=== PATIENT | female | born 1940 | race Caucasian/White ===

== ENCOUNTER → 2023-11-27 09:39 | Outpatient (REF) | payer OTHER, SELFPAY | LOC: WDC 09:39 | PROVIDERS: ATTENDING PHYSICIAN Surgery; FAMILY PHYSICIAN Internal Medicine | DX: R92.2 Inconclusive mammogram (principal); Z85.3 Personal history of malignant neoplasm of breast | CPT/HCPCS: 76641 ==

== ENCOUNTER → 2024-04-22 06:56 | Outpatient (REF) | payer OTHER, SELFPAY | LOC: WDC 06:56 | PROVIDERS: ATTENDING PHYSICIAN Surgery | DX: Z12.31 Encounter for screening mammogram for malignant neoplasm of breast (principal) | CPT/HCPCS: 77063; 77067 ==

== ENCOUNTER 2024-08-03 15:10 | Inpatient (IN) | payer OTHER, SELFPAY ==
[2024-08-03] VITALS (8 sets, daily range): BP systolic 92–115; BP diastolic 59–70; BMI 25.3
[2024-08-03 10:34] LABS: % Eosinophils 2.5 % (0-6); % Immature Granulocytes 0.3 % (0-0.5); % Lymphocytes 27.6 % (20.5-51.1); % Monocytes 9.1 % (1.7-9.3); % Neutrophils 59.5 % (42.2-75.2); Absolute Basophils 0.1 10^3/uL (0-0.2); Absolute Eosinophils 0.2 10^3/uL (0-0.7); Absolute Lymphocytes 2.4 10^3/uL (1.2-3.4); Absolute Monocytes 0.8 10^3/uL (0.1-0.6); Absolute Neutrophils 5.2 10^3/uL (1.4-6.5); Hemoglobin 13.6 g/dL (12.0-16.0); Mean Corpuscular Hgb 29.9 pg (27.0-31.0); Mean Corpuscular Volume 87.9 fL (81.0-99.0); Mean Platelet Volume 10.3 fL (7.4-10.4); Nucleated Red Blood Cells % 0 %; Platelet Count 244 10^3/uL (130-400); Red Blood Cell Count 4.55 10^6/uL (4.20-5.40); Red Cell Dist. Width 13.2 % (11.5-14.5); White Blood Cell Count 8.8 10^3/uL (4.8-10.8)
[2024-08-03 10:47] LABS: ALT (SGPT) 19 U/L (0-35); AST (SGOT) 27 U/L (14-36); Albumin 4.4 g/dl (3.5-5.0); Alkaline Phosphatase 73 U/L (38-126); Blood Urea Nitrogen 31 mg/dl (7-17); Carbon Dioxide 26 mmol/L (22-30); Chloride 101 mmol/L (98-107); Estimated Creatinine Clearance 29 ml/min; Glucose 129 mg/dl (70-99); Potassium 3.8 mmol/L (3.5-5.1); Sodium 137 mmol/L (135-145); Total Bilirubin 0.6 mg/dl (0.2-1.3); Total Protein 6.7 g/dl (6.3-8.2); eGFR 50.17
[2024-08-03 11:01] LABS: Troponin I 0.288 ng/ml
[2024-08-03] MEDS: LOW STRENGTH ASPIRIN 324 MG PO (11:12)
--- NOTE | 2024-08-03 11:35 | ED.GENMED ---
History of Present Illness
General
Chief Complaint: Chest Pain
Time Seen by Provider: 08/03/24 10:15
History of Present Illness
History of Present Illness:
84-year-old female without significant past medical history presenting for episode of chest pressure. Patient reports that she was on the treadmill around 930 this morning. She was walking at a brisk pace for 15 minutes and started to have chest
pressure. She got off the treadmill and called her . When he arrived, noted that she was very diaphoretic and looked like she was going to pass out. Symptoms have since improved. Denies any history of cardiac issues. Last time she walks
on a treadmill was a few days ago and she felt fine. Denies any difficulty breathing. Does note high triglycerides in the past. Notes some residual chest pressure. Denies additional acute medical complaints
Phy Exam
Physical Exam
Physical Exam:
General: Well-appearing, no clinical signs of dehydration, nontoxic and in no acute distress
HEENT: protecting airway
Neck: appears supple
CV: Normal heart rate, regular rhythm
Resp: No accessory muscle use, no increased work of breathing, lungs clear to auscultation bilaterally
Abd: Soft and non-distended, no tenderness to palpation
Extremities: No deformities, no swelling, no erythema
Neuro: alert, no focal neurologic deficit
: deferred
Rectal: deferred
Psych: Normal affect
Skin: Intact
Scores
Heart Score for Chest Pain Patients
STEMI patient?: No
History: Highly Suspicious
ECG: Nonspecific Repolarization
Age: >/= 65 years
Risk Factors: No Risk Factors
Troponin: >/= 3 x Normal Limit
Heart Score for Chest Pain Patients: 7
Heart Score Risk: 72.7 % MACE over next 6 weeks
Course
Orders/Labs/Results
Orders:
Orders
08/03/24 09:51
Electrocardiogram (*1) Urgent
Reason for Study: Chest Pain
EKG- Treatment ONCE
08/03/24 10:25
Cardiac Monitoring- Treatment ONCE
IV Insert/Care/Rem.- Treatment PRN
O2 Therapy [RESP] Urgent
Titrate/Wean O2 to maintain O2 sat greater than (%): 90
Special Instructions: Maintain sats >/=90%
Pulse Ox/spot Check [RESP] Urgent
Quantity: 1
Special Instructions: ON ROOM AIR
08/03/24 10:26
Complete Blood Count/With Diff Urgent
Comprehensive Metabolic Panel Urgent
Troponin I Urgent
08/03/24 11:05
Electrocardiogram (*1) Urgent
Reason for Study: Chest Pain
EKG- Treatment ONCE
Aspirin Chewable [Low Strength Aspirin] 324 mg PO NOW STA
08/03/24 13:30
Troponin I Urgent
Abnormal Lab Results
08/03/24
10:26
Absolute Monos (auto) 0.8 H 10^3/uL
(0.1-0.6)
BUN 31 H mg/dl
(7-17)
Creatinine 1.1 H mg/dL
(0.6-1.0)
Glucose 129 H mg/dl
(70-99)
Troponin I 0.288 H* ng/ml
08/03/24 10:26
08/03/24 10:26
Vital Signs
Initial and Last Documented VS:
Initial Vital Signs
Temp Pulse Resp BP Pulse Ox
100.1 F 63 16 96/62 99
08/03/24 09:59 08/03/24 09:59 08/03/24 09:59 08/03/24 09:59 08/03/24 09:59
Last Documented Vital Signs
Temp Pulse Resp BP Pulse Ox
97.5 F 60 18 96/64 97
08/03/24 10:39 08/03/24 11:00 08/03/24 10:45 08/03/24 11:00 08/03/24 11:00
MDM/Problems Addressed
MDM/Problems Addressed:
84-year-old female without significant past medical history presenting for episode of chest pressure while on the treadmill prior to arrival. Vital signs on arrival are significant for mildly low blood pressure.
On exam, patient is resting comfortably, no acute distress or discomfort. EKG without STEMI criteria, however did show a new left bundle branch block. Symptoms are concerning for cardiac event, essentially failed stress test. Plan for laboratory
analysis including troponin and likely admission with cardiac consultation.
11:40 - Patient troponin is elevated, again concerning for cardiac event. Patient meeting criteria for NSTEMI. EKG repeated, does show some dynamic changes with left bundle branch block. However no Sgarbosa criteria. Cardiology made aware. Plan
for admission. Will start heparin.
*EKG
Interpreted by ED Provider?: Yes
EKG Intrepretation Date: 08/03/24
EKG Intrepretation Time: 11:42
Interpretation: abnormal
Comparison EKG: changes noted (03/19/16)
Heart Rate: 65
Rate: normal
Rhythm: sinus
Graton: left axis deviation
QRS Pattern: left bundle branch block
Ischemia: ST depression
*Critical Care Note
Total Time (30-74mins, 75-104mins- exclusive of procedures): 37
comment:
The high probability of a clinically significant, sudden or life threatening deterioration of the cardiovascular system(s) required my full and direct attention, intervention and personal management. The aggregate critical care time was 37 minutes.
This time is in addition to time spent performing reported procedures but includes the following:
[x] Data Review and interpretation
[x] Patient assessment and monitoring of vital signs
[x] Documentation
[x] Medication orders and management
ED Attending Note
-
Portions of this chart may have been created with voice recognition software.� Occasional wrong word or��sound alike� substitutions may have occurred due to the inherent limitations of voice recognition software.
Discharge Plan
Departure
Patient Disposition: Admit
Date of Disposition: 08/03/24
Time of Disposition: 11:45
Presentation/result/management discussed w/ accepting MD/DO: Hospitalist
Discharge Problem:
Acute non-ST elevation myocardial infarction (NSTEMI), Chest pain, LBBB (left bundle branch block)
Prescriptions:
No Action
sennosides [senna] 1 TABLET tablet
1 tab PO DAILY PRN (Reason: constipation)
magnesium oxide 250 MG tablet
250 mg PO MOWEFR
acetaminophen [Tylenol Extra Strength] 500 MG tablet
1,000 mg PO BIDPRN PRN (Reason: mild pain)
multivitamin Tablet
1 tab PO DAILY
meloxicam 15 mg tablet
15 mg PO DAILY
Acidophilus Capsule
10 mg PO DAILY
losartan-hydrochlorothiazide 50-12.5 mg tablet
1 tab PO DAILY
rosuvastatin 5 mg tablet
5 mg PO DAILY
Cbd Supplement
2 tab PO DAILY
famotidine 20 MG tablet
20 mg PO HSPRN PRN (Reason: acid reflux)
docusate sodium 100 MG capsule
150 mg PO HS
Referrals:
William Shay MD [Family Provider] -
Interventions
Interventions:
*Risk Screen - Suicide Last Done: 08/03/24 11:09
*General Assessment Last Done: 08/03/24 11:09
*Neglect/Abuse Screening Last Done: 08/03/24 11:09
*ED COVID-19 Vaccine History Last Done: 08/03/24 11:09
ED- Cardiac Assessment Last Done: 08/03/24 10:37
Discharge Date and Time
Print Language: CUBAN
--- NOTE | 2024-08-03 11:53 | CON.CAR ---
Addendum entered and electronically signed by Lucio Purdy MD 08/03/24 17:06:
Attending addendum: Patient seen and examined. PA note findings independently confirmed by me. Briefly, this is an 84-year-old female who had reportedly been told that she had a history of mitral valve prolapse in the past. She has a remote
history of breast cancer and recent progressive decline in functional capacity over the past several weeks to months. Several months ago she was exercising on her treadmill for 20 to 30 minutes but most recently can only go approximately 5 minutes
before she becomes profoundly short of breath and has to stop her exercise. Her has noted a significant decline in functional capacity as well. She exercised on the treadmill this morning for approximately 5 minutes before she became short
of breath and presented to [facility] emergency department for further evaluation. Her initial electrocardiogram demonstrated only nonspecific ST-T changes. Her troponin returned at 0.288 ng/mL and a repeat ECG was now notable for a new
left bundle branch block. We noted a loud murmur at the right and left upper sternal border and a stat echocardiogram was requested. Limited images were obtained but asymmetric septal hypertrophy was noted with possible ELLIS. The mid to distal
anterior wall, apex, anteroseptum, and inferior apical olivier were all noted to be hypokinetic. Her aortic valve was mildly thickened but appeared to open. There was at least moderate mitral regurgitation on the limited views obtained. Additional
echocardiographic images were not obtained given shortness of breath and ongoing right arm and mild chest discomfort. Her blood pressure in the emergency department was 98/67. Upon arrival to the cardiac catheterization laboratory she was much
more dyspneic. Please refer to the catheterization report for additional details.
GEN: AAO x 3.��Mild respiratory distress but she is speaking in full sentences and appears mostly comfortable complaining of some right arm discomfort and right shoulder discomfort
HEENT:��NC/AT, sclera are anicteric
NECK: Supple.��Normal JVP
LUNGS: Clear in the anterolateral lung field with no wheezing
CV: Regular rate and rhythm.���Murmur: Crescendo-decrescendo II/ murmur USB
EXT: No CCE
NEURO: No focal neurologic deficits
RECOMMENDATIONS:
-Patient will be referred for emergent coronary angiography given new left bundle branch block, elevated troponin, and ongoing chest and arm discomfort
-Will need complete echocardiogram
-Further management decisions were made after the catheterization is complete��
Original Note:
Consultation
Consultation Request
Date/Time Consultation Requested: 08/03/24
Date/Time Consultation Performed: 08/03/24
Requesting Provider: Dr. Mcclendon in the ER
Performing Provider: Dr. Purdy
Reason for Consultation: Chest pain
Medical History
-
History of Present Illness:
Patient came to [facility] today after an episode of chest pain at home and cardiology is consulted. Patient walks on a home treadmill several times a week, she walked on treadmill Saturday, took the weekend off today and after 15 minutes she stopped and
had chest pain. Patient says that she has not been able to walk as far of a distance on the treadmill as she used to starting a few months ago and endurance has been worse since the winter and cold weather. Patient has never had chest pain like this
before. Still experiencing right arm discomfort. Initial ECG in the ER was incomplete LBBB. Initial Troponin 0.288. ECG repeated 1 hour later with LBBB. Patient was given aspirin 324 mg PO x1 in the ER, patient was not taking aspirin daily prior to
admission. Patient was also given Heparin bolus. Patient with murmur on exam and reports h/o MVP, but no recent echo. No known h/o . Urgent bedside echo in ER showed moderate .
PMH:
h/o HTN
Past Medical History
Past Medical History: Seizures (in HPI)
Past Surgical History: Gynecological (lumpectomy for breast cancer) and Orthopedic
Social History
Tobacco: Non-Smoker
Alcohol: None
Drug: None
Personal:
Living: With Family
Family History
Family History: Hypertension
Allergies / Home Medications
Allergy/AdvReac Type Severity Reaction Status Date / Time
codeine Allergy passed Verified 04/10/16 07:28
out/sick
erythromycin base Allergy ulcer in Verified 04/10/16 07:28
mouth
Penicillins Allergy ulcers in Verified 04/10/16 07:28
mouth
�Medication �Instructions �Recorded �Confirmed �Type
magnesium oxide 250 mg PO MOWEFR 03/19/16 08/03/24 History
sennosides 8.6 mg tablet (senna) 1 tab PO DAILY PRN constipation 03/19/16 08/03/24 History
acetaminophen 500 mg tablet 1,000 mg PO BIDPRN PRN mild pain 04/10/16 08/03/24 History
(Tylenol Extra Strength)
Cbd Supplement 2 tab PO DAILY 08/03/24 08/03/24 History
Lactobacillus acidophilus 10 mg PO DAILY 08/03/24 08/03/24 History
(Acidophilus capsule)
docusate sodium 100 mg capsule 150 mg PO HS 08/03/24 08/03/24 History
famotidine 20 mg tablet 20 mg PO HSPRN PRN acid reflux 08/03/24 08/03/24 History
losartan 50 mg-hydrochlorothiazide 1 tab PO DAILY 08/03/24 08/03/24 History
12.5 mg tablet
meloxicam 15 mg tablet 15 mg PO DAILY 08/03/24 08/03/24 History
multivitamin 1 tab PO DAILY 08/03/24 08/03/24 History
rosuvastatin 5 mg tablet 5 mg PO DAILY 08/03/24 08/03/24 History
Review of Systems
-
History Source: Patient and Family ( bedside)
All other systems: Negative unless noted
Physical Exam
Vital Signs
Temp Pulse Resp BP Pulse Ox
97.5 F 60 18 96/64 97
08/03/24 10:39 08/03/24 11:00 08/03/24 10:45 08/03/24 11:00 08/03/24 11:00
GEN: NAD, AAOx3
HEENT: EOMI, MMM
LUNGS: RA. CTA B/L, no wheezes or rales
CV: Reg, S1/S2, 3/6 syst LSB
ABD: soft, BS+, NT, ND
EXT: No clubbing, cyanosis, lesions or edema B/L
NEURO: Gross non-focal
SKIN: Warm, dry and pink. No rash
Lab Results
08/03/24 10:26
08/03/24 10:26
Troponin I 0.288 ng/ml H* 08/03/24 10:26
Impression / Plan
-
PCP: Dr. William Shay
Cardiology: Seen by Dr. Molina after MARYA in 2015, but no outpatient office visits
Impression:
ACS, chest pain and elevated Troponin
Incomplete LBBB and then LBBB on ECG this admission
Moderate by prelim echo 08/03/24
Hypotension
h/o HTN
Echo 08/03/24: Prelim report, mod
Plan:
-Patient came to [facility] today after an episode of chest pain at home and cardiology is consulted. Patient walks on a home treadmill several times a week, she walked on treadmill Saturday, took the weekend off today and after 15 minutes she stopped and
had chest pain. Patient says that she has not been able to walk as far of a distance on the treadmill as she used to starting a few months ago and endurance has been worse since the winter and cold weather. Patient has never had chest pain like this
before. Still experiencing right arm discomfort. Initial ECG in the ER was incomplete LBBB. Initial Troponin 0.288. ECG repeated 1 hour later with LBBB. Patient was given aspirin 324 mg PO x1 in the ER, patient was not taking aspirin daily prior to
admission. Patient was also given Heparin bolus. Patient with murmur on exam and reports h/o MVP, but no recent echo. No known h/o . Urgent bedside echo in ER showed moderate .
-ECG initially with IC LBBB and an hour later was LBBB, as reviewed by me.
-Arrival time to canvas shop laborer delayed by need for bedside echo given murmur of and echo showed mod .
-Talked with patient and about risk vs benefit of cath and concerns for ACS given chest pain and now that 2nd ECG shows LBBB. Also discussed the possibility of multivessel CAD or the possibility that there is another process going on.
-Ongoing right arm pain, cannot give NTG SL due to hypotension with BP 99/67.
-Patient with h/o HTN and normally takes Hyzaar 50/12.5 mg daily.
-Check CVE, patient was taking Crestor 5 mg daily prior to admission.
-Patient cannot think of any contraindication to DAPT if stent is indicated.
-Called PCP to try and get old echo report, await a call back.
[2024-08-03] MEDS: HEPARIN 25000 UNITS/250 ML IV (12:00)
[2024-08-03] MEDS: HEPARIN 3300 UNITS IV (12:02)
--- NOTE | 2024-08-03 14:18 | W.PN.ANS.POP ---
Anesthesia Post Operative
- Anesthesia Post Op Note
Vital Signs Stable-See Nursing Note: Yes
Airway Patent: Yes
Adequate Pain Control: Yes
Change in Mental Status: No
Current Postoperative Nausea & Vomiting: No
Anesthesia Complications: No
General Anesthetic Recall: No
Unplanned Admission: No
Post Op Hydration Adequate: Yes
[2024-08-03 14:21] LABS: ACT-LR - POC 247 Seconds (116-155)
--- NOTE | 2024-08-03 14:47 | W.PN.UPDATE ---
Update Note
Progress Note Update
Called to labor and delivery nurse urgently. Patient with severe MR and being placed on ECMO. CT surgery bedside and plan is for emergent OR today. Update patient's and son in the waiting area. Explained what was happening currently and plans for OR.
Answered questions and explained ECMO and MV surgery is broad terms. CT surgery team notified of patient family update and they will update family as well. Back to see family with another update and questions answered.
--- NOTE | 2024-08-03 15:35 | CONSULT.CT ---
Consultation
-
Date/Time Consultation Requested: 08/03/24
Date/Time Consultation Performed: 08/03/24
Requesting Provider: Lucio Purdy
Performing Provider: Faye AGUAYO for Ramon Layne MD
Reason for Consultation: ECMP/MVR
Patient History
Physicians
Family Physician: William Shay
Inpatient Lottery Sales Clerk: Lucio Purdy
History of Present Illness
All information gleaned from chart as CPR in progress in landscape laborer at time of notification
Patient developed chest pressure with diaphoresis while walking on treadmill this morning. Patient usually walks on a home treadmill several times a week, however has noticed decreased exercise tolerance over the past few months. Initial ECG in the
ER was incomplete LBBB. Initial Troponin 0.288. Aspirin 324 mg PO x1 in the ER, and Heparin bolus. Patient with reported murmur on exam and h/o MVP, but no recent echo. Taken urgently to landscape laborer and angiogram reported clean coronaries and +4MR.
IABP placed by a BP placed IABP placed. Patient developed hypotension and respiratory distress requiring emergent intubation. Patient subsequently arrested and required less than 5 minutes of high-quality CPR. CT surgery was consulted for VA-ECMO
and emergent MVR.
Past Medical History
Past Medical History: Cancer (Left breast cancer status post lobectomy and radiation in 1991), HTN, Hypercholesterolemia, Radiation (Left breast 1991), Valvular Disease (h/o MVP) and Other (nephrolithiasis 2018)
Past Surgical History
Past Surgical History: Orthopedic (left hip replacement 2016) and Other (Left lumpectomy 1991)
Family History
Mother: N/A
Father: N/A
Social History
Alcohol: None
Drug: None
Tobacco: Non-Smoker
Personal:
Living: With Spouse
Employment: Retired
Allergies
Allergy/AdvReac Type Severity Reaction Status Date / Time
codeine Allergy passed Verified 04/10/16 07:28
out/sick
erythromycin base Allergy ulcer in Verified 04/10/16 07:28
mouth
Penicillins Allergy ulcers in Verified 04/10/16 07:28
mouth
Home Medications
�Medication �Instructions �Recorded �Confirmed �Type
magnesium oxide 250 mg PO MOWEFR 03/19/16 08/03/24 History
sennosides 8.6 mg tablet (senna) 1 tab PO DAILY PRN constipation 03/19/16 08/03/24 History
acetaminophen 500 mg tablet 1,000 mg PO BIDPRN PRN mild pain 04/10/16 08/03/24 History
(Tylenol Extra Strength)
Cbd Supplement 2 tab PO DAILY 08/03/24 08/03/24 History
Lactobacillus acidophilus 10 mg PO DAILY 08/03/24 08/03/24 History
(Acidophilus capsule)
docusate sodium 100 mg capsule 150 mg PO HS 08/03/24 08/03/24 History
famotidine 20 mg tablet 20 mg PO HSPRN PRN acid reflux 08/03/24 08/03/24 History
losartan 50 mg-hydrochlorothiazide 1 tab PO DAILY 08/03/24 08/03/24 History
12.5 mg tablet
meloxicam 15 mg tablet 15 mg PO DAILY 08/03/24 08/03/24 History
multivitamin 1 tab PO DAILY 08/03/24 08/03/24 History
rosuvastatin 5 mg tablet 5 mg PO DAILY 08/03/24 08/03/24 History
Review of Systems
-
Unable to obtain full review of systems at this time due to: Patient Intubation
Physical Exam
Vital Signs
Temp 97.5 F 08/03/24 10:39
Temp route: Oral 08/03/24 10:39
Pulse 77 08/03/24 12:30
Resp Rate 15 08/03/24 12:30
Blood pressure 98/67 08/03/24 12:05
MAP (cuff-Krysten Monitor) 77 08/03/24 12:05
SaO2 95 08/03/24 12:05
Oxygen Mode of Delivery Room air 08/03/24 11:09
Actual Weight 55 kg 08/03/24 10:36
Body Mass Index (BMI) 25.3 08/03/24 10:36
Labs
08/03/24 10:26
08/03/24 10:26
APTT Cancelled 08/03/24 18:00
Troponin I Cancelled 08/03/24 13:30
Exam
General: Intubated
Cardiac: S1/S2 and Regular Rhythm
Rectal: Deferred by Provider
Skin: Warm and Dry
Neuro: Other (intubated and sedated)
Assessment / Plan
-
84-year-old female with +4 MR noted on angiogram, cardiac arrest s/p VA-ECMO placement (CPT code 51143) by Dr Ramon Layne
- taken to OR and echo images reviewed with [facility]
- abort plan for MVR and transfer to [facility] under Dr Yang for further evaluation
Data Reviewed
-
EKG: Report Reviewed by me and Discussed with Physician
Sales Advisory Manager: Report Reviewed by me and Discussed with Physician
Echo: Report Reviewed by me and Discussed with Physician
Labs: Labs Reviewed by me and Discussed with Physician
[2024-08-03 15:49] LABS: ACT-LR - POC > 397 Seconds (116-155)
[2024-08-03 15:49] LABS: ACT-LR - POC > 397 Seconds (116-155)
[2024-08-03 15:55] LABS: ACT+ - POC 406 Seconds (82-134)
[2024-08-03 16:01] LABS: Direct Bilirubin 0.4 mg/dl (0.0-0.4)
[2024-08-03 16:12] LABS: B.E. - POC -5.3 mmol/L; Glucose - POC 230 mg/dl (70-99); HCO3 - POC 17 mmol/L (21-28); Hematocrit - POC 31 % PCV (37-47); Hemodilution- POC Yes; Hemoglobin Calculated - POC 10.6; Ionized Calcium - POC 0.98 mmol/L (1.15-1.33); PCO2 - POC 25 mmHg (35-48); PO2 - POC 529 mmHg (83-108); POC Comment ON ECMO; Potassium - POC 2.2 mmol/L (3.5-5.1); Sodium - POC 142 mmol/L (136-145); Specimen Type - POC Arterial; pH - POC 7.45 (7.35-7.45)
[2024-08-03 16:20] LABS: ACT+ - POC 387 Seconds (82-134)
--- NOTE | 2024-08-03 16:31 | W.PN.CT.SURG ---
CT Surgery Operative Note
-
CARDIAC SURGERY OPERATIVE NOTE: VA ECMO PLACEMENT
Preoperative Dx:
Cardiogenic shock w/ acute pulmonary edema
Hemodynamic instability requiring intermittent CPR and IABP placement
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
Postoperative Dx:
Same
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
Procedures:
1) VA ECMO placement via R SENIOR ENGINEERING TEAM LEADER/CFV
2) Placement of 5Fr antegrade SFA sheath
3) Placement of L CFV cordis in OR
Interventional Cardiologists:
Dr. Lucio Purdy (assisted w/ VA ECMO cannulation & SFA antegrade sheath placement)
Dr. Cheng López (assisted w/ SFA antegrade sheath placement)
Cardiac Surgeon:
Dr. Ramon Layne
Fruit Or Nut Grower:
Nickie Dos Santos P.A.-C.
Anesthesia:
RN directed anesthesia/STRATIGRAPHY TEACHER
Flako Roa M.D.
Complications:
None
Condition:
Critical - Improved post VA ECMO
69 sinus w/ BBB; 76/62 (MAP 66)
GTTS: levophed 1, lorazepam 2
VA ECMO: 2.8L/min; SWEEP 1
Vent: 5/350/60/5
Implants/Lines:
R SENIOR ENGINEERING TEAM LEADER 15Fr arterial cannula
R CFV 25Fr long venous cannula (tip in mid-SVC)
R SFA 5Fr sheath
Kelley catheter (placed in OR)
L CFV cordis (placed in OR)
6Fr R radial sheath (placed in pipelines laborer)
NARRATIVE:
Called emergently to pipelines laborer for decompensating patient. Arrived bedside w/ IABP/ACLS ongoing. Pt. intubated for acute pulmonary edema w/ pink, frothy sputum. Intermittent CPR required w/ good hemodynamic response. Arrangements made for VA ECMO
cannulation. Additional 10,000U heparin administered. R SENIOR ENGINEERING TEAM LEADER access present w/ 8Fr sheath/IABP; R CFV access present w/ 6Fr sheath. J-wire advanced into SVC under fluoroscopic guidance via R CFV sheath. Catheter exchanged for extra-stiff wire.
Serial dilation of R CFV w/ placement of long 25Fr femoral venous catheter under fluoroscopic guidance. IABP removed w/ placement of extra-stiff wire into descending thoracic aorta under fluoroscopic guidance. Serial dilation of R ileofemoral
system w/ placement of 15Fr arterial line. Establishment of VA ECMO support. Placement of 5Fr antegrade SFA cannula w/ U/S and fluoroscopic guidance. Lines secured in position. Pt. transported to [facility].
In CVOR EVANGELIST probe placed and not congruent w/ acute, severe MR as causative etiology behind decompensation. Pt. noted to have significant asymmetric septal hypertrophy w/ LVOTO and questionable end-stage HOCM w/ LV dysfunction. Planned operative
intervention cancelled. L CFV cordis placed in standard sterile fashion. Arrangements underway for transfer to [facility].
[2024-08-03 16:46] LABS: Glucose - POC 191 mg/dl (70-99); HCO3 - POC 15 mmol/L (21-28); Hematocrit - POC 28 % PCV (37-47); Hemodilution- POC Yes; Hemoglobin Calculated - POC 9.5; Ionized Calcium - POC 0.99 mmol/L (1.15-1.33); PCO2 - POC 21 mmHg (35-48); PO2 - POC 455 mmHg (83-108); POC Comment ECMO; Potassium - POC 2.8 mmol/L (3.5-5.1); Sodium - POC 144 mmol/L (136-145); Specimen Type - POC Arterial; pH - POC 7.47 (7.35-7.45)
[2024-08-03 16:52] LABS: Urine Albumin 2+ (Neg - Trace); Urine Bilirubin Negative (Negative); Urine Character Clear (Clear); Urine Color Yellow; Urine Glucose 3+ (Negative); Urine Ketone 3+ (Negative); Urine Leukocyte Negative (Negative); Urine Nitrite Negative (Negative); Urine Occult Blood 2+ (Negative); Urine Urobilinogen Negative (Neg - 1+); Urine pH 6.5 (5.0-9.0)
[2024-08-03 16:52] LABS: ACT+ - POC 369 Seconds (82-134)
[2024-08-03 17:17] LABS: Urine Red Blood Cell 0-2 /HPF (0-2); Urine Squamous Cell 0-2 /LPF (Few); Urine White Cell 0-2 /HPF (0-5)
--- NOTE | 2024-08-03 17:41 | W.PN.UPDATE ---
Update Note
Progress Note Update
Arrived from OR after aborted MVR-awaiting [facility] ground transport
Received 1500cc IVF, 1PRBC
U.O 400cc
#Neuro
- deep sedation/analgesia with Propofol/Versed
#CV
Right femoral VA ECMO (#15F return, #25F drainage) with DPC
Speed 6700
FiO2 100%
Sweep 1
Flow 2.7
- maintaining NSR
MAP 80s off Levophed
# Pulm
#8OT @ 20cm AC 400/40%/10/5
# GI
- NPO
#
- Kelley with clear yellow urine
- creat 1.1
# Heme
- 2UPRBC on hold for cannulation exchange
# Endocrine
- glucose stable on insulin infusion
# ID
- received Ancef prophylaxis
# Skin
- no lesions/sores on admission
[2024-08-03 17:42] LABS: Glucose - Point of Care 195 mg/dl (70-99)
[2024-08-03] MEDS: DIPRIVAN 100 IV ×2 (17:42→19:53)
[2024-08-03] MEDS: SUBLIMAZE 100 IV (17:48)
[2024-08-03] MEDS: SUBLIMAZE 55 MCG IV (17:49)
[2024-08-03 17:52] LABS: B.E. -5.5 mmol/L; HCO3 19.2 mmol/L (21-28); Ionized Calcium 1.18 mMOL/L (1.15-1.33); O2 Saturation % 99.9 % (94-98); PCO2 34 mmHg (32-35); PO2 443 mmHg (83-108); Potassium 3.8 mMOL/L (3.5-5.1); Sodium 138 mMOL/L (136-145); pH 7.36 (7.35-7.45)
[2024-08-03] MEDS: KCL 50 IV (17:57)
[2024-08-03 18:08] LABS: INR 1.61; PT 19.4 Sec (11.4-14.6)
--- NOTE | 2024-08-03 18:09 | PTCARENOTE ---
received pt from the OR into 2265, sinus rhythm on tele, Dr. Layne, anesthesia, perfusion at bedside, ECMO being maintained by perfusion. Pt intermittently on 2-4 mcg of levophed. Fentanyl and propofol infusions initiated as ordered. Pt is
intubated #8 ETT/ 23 right lip, VENT SETTINGS 400/50/10/+5 PEEP. Right radial arterial sheath transduced, PIV x2 maintained, left femoral central line removed by Dr. Layne at bedside. [facility] team updated.
[2024-08-03 18:11] LABS: Blood Urea Nitrogen 24 mg/dl (7-17); Estimated Creatinine Clearance 40 ml/min; Glucose 190 mg/dl (70-99); Magnesium 1.9 mg/dl (1.6-2.3); Triglycerides 39 mg/dl (10-149)
[2024-08-03 18:21] LABS: Hematocrit 31.7 % (37.0-47.0); Hemoglobin 10.8 g/dL (12.0-16.0); Platelet Count 163 10^3/uL (130-400)
[2024-08-03 18:26] LABS: APTT > 200 Sec (23.4-35.0)
--- NOTE | 2024-08-03 18:43 | ITS.CL.CATH ---
[employer] - Catheterization
Cardiac Catheterization
Procedure Report:
RIGHT AND LEFT HEART STUDY
Date of Procedure: August 03, 2024
Referring: [facility] Emergency Department
PROCEDURES:
1. Left heart catheterization with coronary and single-plane left ventriculography
2. Right heart catheterization
3. Insertion of 7 Moldovan 25 mL intra-aortic balloon pump via right common femoral artery
4. ECMO cannulation with Dr. Layne. Refer to his full operative report
INDICATION: This is an 84-year-old female with a reported history of mitral valve prolapse but no prior echocardiogram. She has a remote history of breast cancer. She presented to [facility] with a several week history of progressive
decline in functional status. Her states within the past 1 to 2 months she had been walking on a treadmill for 20 minutes but can now barely make 5 minutes without becoming profoundly short of breath. She had exercised earlier in the day
for only 5 minutes at which point she developed chest tightness and shortness of breath. She presented to [facility] with chest pressure and her initial electrocardiogram was notable for rather nonspecific ST-T changes but her troponin
returned at 0.288 ng/mL. She continued to experience vague symptoms and a repeat electrocardiogram was now notable for a new left bundle branch block. A cardiology consult was obtained. She was noted to have a loud precordial murmur and a stat
echocardiogram was ordered. Upper septal hypertrophy was noted with anteroseptal, apical, anterior and apical and anterolateral hypokinesis. She was noted to have some degree of aortic stenosis which did not appear critical and probable moderate
mitral regurgitation. The echocardiogram was terminated before a full study could be completed because the patient appeared more dyspneic and was felt that she needed to proceed with invasive assessment of her coronary anatomy. Her systolic blood
pressures in the emergency room were running 94/66-98/67 range. Upon arrival to the cardiac catheterization laboratory she was found to be more hypoxic and hypotensive.
ACCESS: Right radial artery, 6 Moldovan sheath and right common femoral vein, 6 Moldovan sheath
CORONARY FINDINGS :
Dominance: Right
LEFT MAIN: Normal
LEFT ANTERIOR DESCENDING: The LAD arises normally from the left main and runs in the anterior interventricular groove. The LAD is a small to medium caliber vessel with only minor irregularities over its course. The LAD does taper to a rather small
caliber vessel as it approaches the left ventricular apex
CIRCUMFLEX: The circumflex is a medium caliber nondominant vessel. OM1 arises very proximally from the circumflex and is a rather small caliber vessel. OM 2 is tortuous and the circumflex terminates in a moderate caliber OM 3. Only minor
irregularities are noted.
RIGHT CORONARY ARTERY: The right coronary artery was a dominant vessel that is widely patent over its course. The PDA is widely patent. The posterolateral branch is small but widely patent
VENTRICULOGRAPHY: Left ventriculography is performed in an COURTNEY projection. The digital single-plane left ventricular ejection fraction is estimated at 30% with mid to distal anterior, apical, and inferoapical hypokinesis noted in a pattern typical
for Takotsubo's type cardiomyopathy. There is 4+ mitral regurgitation
HEMODYNAMICS : mmHg
RA (m) : 15
RV (s/d) : 53/12, 21
PA (s/d, m) : 54/22, 37
PCWP (m) : 38 with V waves to 50 mmHg
AO (s/d, m) : 80/50, 63
LV (s/d) : 107/21
LVEDP : 33
Estimated Greg Cardiac Output: 2.5 L / min and Cardiac Index: 1.7 L/ min / m-2
Systemic vascular resistance: 19.2 Wood units or 1536 [id number](-5)
Pulmonary vascular resistance: 2.8 Wood units or 224 [id number]-[id number]-go(-5)
AORTIC VALVE :
Mean AV Gradient: 22 mmHg
INTRA-AORTIC BALLOON PUMP INSERTION: Ultrasound guidance was utilized to obtain access in the right common femoral artery and the micropuncture sheath was inserted. The inner cannula was removed and a soft-tipped J-wire was advanced to the
descending thoracic aorta which was serially dilated and followed by placement of a 7 Moldovan arterial sheath. The 25 ml intra-aortic balloon pump was advanced over J-tip guidewire and positioned in the proximal descending thoracic aorta and began
augmenting in a one-to-one fashion.
ECMO Cannulation: Throughout the procedure the patient developed progressive hypotension and hypoxemia with oxygen saturations in the low 80s on 100% nonrebreather. The 7 Moldovan 25 mm intra-aortic balloon pump was inserted as a temporizing measure
but unfortunately provided little hemodynamic support. The patient became progressively hypoxic and hypotensive and transiently required CPR. She was emergently intubated. At this point CT surgery arrived after being consulted for possible flail
mitral leaflet versus Takotsubo's cardiomyopathy with ELLIS. The time course was somewhat difficult to fully attribute to an acute event given the chronicity of symptoms lasting at least several weeks to a month or 2 before presentation. It was felt
that her mitral regurgitation may be more acute on chronic. The intra-aortic balloon pump provided minimal support and after brief discussion with CT surgery the decision was made to place the patient on ECMO to provide additional hemodynamic
support until the etiology of her severe mitral regurgitation could be elucidated further. The full details of ECMO placement can be found under Dr. Layne's operative report.
RADIATION SUMMARY: Fluoro Time (min): 8.0, Dose (mGy): 162, DAP (Gy.cm2) : 15.4
CONCLUSIONS
1. Nonobstructive coronary disease
2. Moderate LV dysfunction in an angiographic pattern typical for Takotsubo's type cardiomyopathy
3. Severe mitral regurgitation with possible ELLIS noted on limited transthoracic echocardiogram done prior to arrival to the catheterization laboratory. The clinical time course seemed most consistent with an acute on chronic event rather than
acute decompensation related to a Takotsubo cardiomyopathy with ELLIS. Rapid clinical deterioration and escalation in hemodynamic was required.
RECOMMENDATIONS
1. Patient will be moved from catheterization laboratory to CVOR for EVANGELIST and possible mitral valve replacement if a structural / mechanical issues is found. If the mitral valve structurally looks normal then will hold further discussions with
[facility] to determine next steps.
Copy to: Dr. William Shay
--- NOTE | 2024-08-03 18:48 | W.PN.UPDATE ---
Update Note
Progress Note Update
CARDIAC SURGERY ATTENDING:
Pt. doing well while awaiting transfer for ongoing management.
Experience transient episode of decreased MAPS to 40s-50s that was not responsive to increasing levophed dosing.
This was an enigma as she had been stable on 1 or 2 of levophed since instituting VA ECMO
Examined lines to find that R CFV cordis now significant oozing around sheath since transport from OR to CVICU
Transitioned levophed from R CFV cordis to PIV with rapid improvement in MAPS
Continued oozing around cordis despite pressure
Line removed and manual pressure held x 1hr 20min w/ good hemostasis - surrounding ecchymosis but no significant hematoma
Pt. transitioned to [facility] ECMO circuit at approximately 8:00 PM - VA ECMO support resumed w/ good color change in lines
Report given to [facility] transport providers
Pt.'s informed
--- NOTE | 2024-08-03 19:00 | PTCARENOTE ---
assumed care of pt from previous RN. pt intubated, sedated on fentanyl and propofol. ETT size 8.0, 23cm at the lip. Vent settings A/C 10/400/5/40%. POX 100% on 40% FiO2. VA ECMO in R groin; store receiver at bedside to manage ECMO. R radial a-line.
all lines leveled, zeroed, flushed. SR on tele-monitor. palpable peripheral pulses, no edema noted. abd s/n, hypoactive BS. butler catheter draining clear, yellow urine. Dr. Layne at bedside, holding manual pressure on L groin puncture site. PIV x2
intact. pt awaiting transport from [facility]. see worklist for complete nursing assessment, interventions, VS, and I&Os.
[2024-08-03] MEDS: ANCEF 10 IV ×2 (19:03)
[2024-08-03] MEDS: KCL 160 MEQ IV (19:19)
[2024-08-03 19:26] LABS: Glucose - POC 229 mg/dl (70-99); HCO3 - POC 20 mmol/L (21-28); Hematocrit - POC 28 % PCV (37-47); Hemodilution- POC No; Hemoglobin Calculated - POC 9.6; Ionized Calcium - POC 1.29 mmol/L (1.15-1.33); O2 Saturation %Calculated-POC 99.9 % (94-98); PCO2 - POC 43 mmHg (35-48); PO2 - POC 323 mmHg (83-108); Potassium - POC 4.1 mmol/L (3.5-5.1); Sodium - POC 140 mmol/L (136-145); Specimen Type - POC Arterial; pH - POC 7.27 (7.35-7.45)
[2024-08-03] MEDS: SUBLIMAZE 50 MCG IV (19:29)
[2024-08-03 19:33] LABS: ACT-LR - POC 274 Seconds (116-155)
[2024-08-03 20:06] LABS: B.E. - POC -2.9 mmol/L; Glucose - POC 163 mg/dl (70-99); HCO3 - POC 25 mmol/L (21-28); Hematocrit - POC 32 % PCV (37-47); Hemodilution- POC No; Hemoglobin Calculated - POC 10.9; Ionized Calcium - POC 1.31 mmol/L (1.15-1.33); O2 Saturation %Calculated-POC 99.9 % (94-98); PCO2 - POC 59 mmHg (35-48); PO2 - POC 381 mmHg (83-108); Potassium - POC 3.9 mmol/L (3.5-5.1); Sodium - POC 142 mmol/L (136-145); Specimen Type - POC Arterial; pH - POC 7.24 (7.35-7.45)
[2024-08-03 20:10] LABS: B.E. - POC -3.4 mmol/L; Glucose - POC 148 mg/dl (70-99); HCO3 - POC 23 mmol/L (21-28); Hematocrit - POC 17 % PCV (37-47); Hemodilution- POC No; Hemoglobin Calculated - POC 5.7; Ionized Calcium - POC 1.12 mmol/L (1.15-1.33); O2 Saturation %Calculated-POC 89.1 % (94-98); PCO2 - POC 51 mmHg (35-48); PO2 - POC 66 mmHg (83-108); POC Comment PRE ECMO; Potassium - POC 4.2 mmol/L (3.5-5.1); Sodium - POC 140 mmol/L (136-145); Specimen Type - POC Arterial; pH - POC 7.26 (7.35-7.45)
[2024-08-03 20:15] LABS: B.E. - POC -5.8 mmol/L; Glucose - POC 141 mg/dl (70-99); HCO3 - POC 21 mmol/L (21-28); Hematocrit - POC 17 % PCV (37-47); Hemodilution- POC No; Hemoglobin Calculated - POC 5.9; Ionized Calcium - POC 1.13 mmol/L (1.15-1.33); PCO2 - POC 49 mmHg (35-48); PO2 - POC 540 mmHg (83-108); Potassium - POC 4.1 mmol/L (3.5-5.1); Sodium - POC 139 mmol/L (136-145); Specimen Type - POC Arterial; pH - POC 7.24 (7.35-7.45)
--- NOTE | 2024-08-03 20:30 | PTCARENOTE ---
[facility] transport team at bedside. all gtts transferred by [facility] transport team. CT surgery team/[facility] last code striper transferred ECMO lines. RT at bedside to assist w/ vent transfer.
1 U RBCs infusing. [place] blood bank sheet given to [facility] transport team. instructions given to fax pink sheet to when blood completed. additional 1 U RBCs sent w/ [facility] transport team.
pt's family updated.
--- NOTE | 2024-08-04 16:15 | CM ---
pt taken emerg to cathlab then CV OR. spoke to and son. pt is previndep, lives with her husb in a 2 story home with no steps to enter. she is presently medically unstable and is starting ECMO in the CVOR. pt will go to a room in CVICU then
transfered to [facility]. [place] transport called. husb updated and given pts belongings including jewelry. await ambul arrival.
== END 2024-08-03 20:50 | disposition short-term general hospital (02) | DRG 3 ==
LOC: CVICU 15:10
PROVIDERS: Nurse Practitioner; ADMITTING PHYSICIAN Thoracic Surgery (Cardiothoracic Vascular Surgery); ATTENDING PHYSICIAN Internal Medicine Interventional Cardiology; EMERGENCY PHYSICIAN Student in an Organized Health Care Education/Training Program; FAMILY PHYSICIAN Internal Medicine
PROC: 5A1522G Extracorporeal Oxygenation, Membrane, Peripheral Veno-arterial (ICD-10-PCS; 2024-08-03)
PROC: 5A02210 Assistance with Cardiac Output using Balloon Pump, Continuous (ICD-10-PCS; 2024-08-03)
PROC: 4A023N8 Measurement of Cardiac Sampling and Pressure, Bilateral, Percutaneous Approach (ICD-10-PCS; 2024-08-03)
PROC: 5A1935Z Respiratory Ventilation, Less than 24 Consecutive Hours (ICD-10-PCS; 2024-08-03)
PROC: 0BH17EZ Insertion of Endotracheal Airway into Trachea, Via Natural or Artificial Opening (ICD-10-PCS; 2024-08-03)
PROC: B2151ZZ Fluoroscopy of Left Heart using Low Osmolar Contrast (ICD-10-PCS; 2024-08-03)
PROC: B2111ZZ Fluoroscopy of Multiple Coronary Arteries using Low Osmolar Contrast (ICD-10-PCS; 2024-08-03)
DX: I34.1 Nonrheumatic mitral (valve) prolapse (principal); J81.0 Acute pulmonary edema; R57.0 Cardiogenic shock; I51.81 Takotsubo syndrome; I42.1 Obstructive hypertrophic cardiomyopathy; I44.7 Left bundle-branch block, unspecified; I10 Essential (primary) hypertension; I95.9 Hypotension, unspecified; R56.9 Unspecified convulsions; E78.00 Pure hypercholesterolemia, unspecified; R09.02 Hypoxemia; Z79.899 Other long term (current) drug therapy; Z85.3 Personal history of malignant neoplasm of breast; Z92.3 Personal history of irradiation
CPT/HCPCS: 33947; 33952; 33967; 80053; 81003; 81015; 82248; 82330; 82565; 82805; 82947; 82962; 83605; 83735; 84132; 84302; 84478; 84484; 84520; 85014; 85018; 85025; 85049; 85347; 85610; 85730; 86850; 86900; 86901; 86920; 92950; 93005; 93306; 93312; 93320; 93325; 93460; 94002; 96374; 99291; C1769; C1894; P9016; Q9967